=== PATIENT | female | born 1995 | race African-American/Black ===

== ENCOUNTER 2023-02-21 12:44 | Inpatient (IN) | payer MEDICAID ==
[~2023-02-21] VITALS: Ht 154.9 cm; Wt 63.0 kg
[2023-02-21] MEDS ORDERED: SODIUM CHLORIDE 0.9% 1,000 ML IV ONE ×2 (13:30→17:15)
[2023-02-21] MEDS ORDERED: MORPHINE SULFATE 4 MG/ML CPJ (NOT FOR IM USE) IV NR ×2 (13:30→17:30)
[2023-02-21] MEDS ORDERED: ONDANSETRON HCL 4MG/2ML INJ IV NR ×2 (13:30→17:30)
[2023-02-21 14:55] LABS: CLARITY URINE CLOUDY (CLEAR); COLOR URINE YELLOW (YELLOW); KETONES URINE NEGATIVE (NEGATIVE); LEUKOCYTE ESTERASE URINE 2+ (NEGATIVE); NITRITE URINE NEGATIVE (NEGATIVE); OCCULT BLOOD URINE NEGATIVE (NEGATIVE); PH URINE >=9.0 (4.5-8.0); PROTEIN URINE NEGATIVE (NEGATIVE); SPECIFIC GRAVITY URINE 1.012 (1.005-1.030); UROBILINOGEN URINE 0.2 E.U./dL (0.2-1.0)
[2023-02-21 15:04] LABS: CHLORIDE 107 mEq/L (98-107)
[2023-02-21 15:06] LABS: BASOPHILS % 1.1 % (0.0-2.0); EOSINOPHILS % 0.1 % (0.0-5.0); HEMATOCRIT. 41.8 % (36.0-48.0); HEMOGLOBIN. 13.8 g/dL (12.0-16.0); LYMPHOCYTES % 7.7 % (20.0-50.0); MEAN CORPUSCULAR HEMOGLOBIN 28.1 pg (28.0-32.0); MEAN CORPUSCULAR VOLUME 84.6 fL (81.0-99.0); MONOCYTES % 1.7 % (2.0-8.0); NEUTROPHILS % 89.4 % (40.0-76.0); RED BLOOD CELL COUNT 4.94 mill/uL (4.2-5.4); RED CELL DISTRIBUTION WIDTH 14.1 % (11.6-14.6)
[2023-02-21 15:44] LABS: HCG SCREEN NEGATIVE
[2023-02-21] MEDS ORDERED: CEFTRIAXONE 2GM DUPLEX 50 ML IV NR (16:15)
[2023-02-21] MEDS ORDERED: DIPHENHYDRAMINE 50MG/ML VIAL IV ONE (17:30)
[2023-02-21] MEDS ORDERED: PROCHLORPERAZINE 10MG/2ML VIAL IV ONE (17:30)
[2023-02-21 17:44] LABS: MEAN PLATELET VOLUME 9.1 fl (7.4-10.4); PLATELET 310 x1000/uL (130-400)
[2023-02-21] MEDS ORDERED: ACETAMINOPHEN 325MG TABLET PO PRN ×2 (21:00)
[2023-02-21] MEDS ORDERED: MAGNESIUM/ALUMINUM HYDROXIDE/SIMETHICONE 30ML UDC PO PRN (21:00)
[2023-02-21] MEDS ORDERED: DIPHENHYDRAMINE 50MG/ML VIAL IV PRN (21:00)
[2023-02-21] MEDS ORDERED: MORPHINE SULFATE 4 MG/ML CPJ (NOT FOR IM USE) IV PRN (21:00)
[2023-02-21] MEDS ORDERED: PROCHLORPERAZINE 10MG/2ML VIAL IM PRN (21:00)
[2023-02-21] MEDS ORDERED: KETOROLAC 30MG/ML VIAL IV PRN (21:00)
[2023-02-21] MEDS: PANTOPRAZOLE SODIUM 40 MG/VIAL IV SCH (21:00)
[2023-02-21] MEDS: SODIUM CHLORIDE 0.9% 1,000 ML IV SCH (23:47)
[2023-02-22 01:10] VITALS: BP 112/68
[2023-02-22 03:00] VITALS: BP 112/68
[2023-02-22] MEDS: SODIUM CHLORIDE 0.9% 1,000 ML IV SCH ×2 (03:26→10:28)
[2023-02-22 04:00] VITALS: BP 105/58
[2023-02-22 07:56] LABS: BASOPHILS % 0.5 % (0.0-2.0); EOSINOPHILS % 0.1 % (0.0-5.0); HEMATOCRIT. 36.5 % (36.0-48.0); HEMOGLOBIN. 12.3 g/dL (12.0-16.0); LYMPHOCYTES % 14.1 % (20.0-50.0); MEAN CORPUSCULAR VOLUME 83.1 fL (81.0-99.0); MONOCYTES % 8.3 % (2.0-8.0); PLATELET 322 x1000/uL (130-400); RED BLOOD CELL COUNT 4.39 mill/uL (4.2-5.4); RED CELL DISTRIBUTION WIDTH 14.2 % (11.6-14.6)
[2023-02-22 08:00] VITALS: BP 119/62
[2023-02-22 08:12] LABS: CHLORIDE 106 mEq/L (98-107)
[2023-02-22 08:19] LABS: PHOSPHORUS 3.6 mg/dL (2.5-4.9)
[2023-02-22] MEDS: PANTOPRAZOLE SODIUM 40 MG/VIAL IV SCH (10:27)
[2023-02-22] MEDS ORDERED: POTASSIUM CHLORIDE INJ 40 MEQ in DEXT 5% WATER 500 ML IV NR (11:00)
[2023-02-22 12:00] VITALS: BP 122/76
[2023-02-22] MEDS ORDERED: POTASSIUM CHLORIDE 20MEQ TABLET SR PO NR (14:00)
[2023-02-22 14:22] VITALS: BP 122/76
== END 2023-02-22 15:20 | disposition home or self-care (01) | DRG 532 ==
LOC: ER 12:44 → MICUSO 20:14 → 6EST 02-22 01:11
PROVIDERS: ADMIT Internal Medicine; ATTEND Internal Medicine
DX: N83.201 Unspecified ovarian cyst, right side (principal); E87.6 Hypokalemia
CPT/HCPCS: 36415; 74176; 76830; 76856; 80053; 81003; 83605; 83735; 84100; 84703; 85025; 99285; C9113; J0696; J0780; J1200; J2270; J2405; J3480; J7060